=== PATIENT | female | born 1990 | race American Indian/Alaskan Native ===

== ENCOUNTER 2019-03-13 08:12 | Emergency (ER) | payer MEDICAID ==
[2019-03-13 08:22] VITALS: BP 153/81
[2019-03-13 08:59] LABS: Bacteria,Urine 1+ /HPF (Negative); Bilirubin,Urine NEG (Negative); Blood,Urine MOD (Negative); Color,Urine Yellow (Yellow); Mucus,Urine FEW /HPF; Protein,Urine <15 mg/dL mg/dL (Negative); Urobilinogen,Urine < 2.0 mg/dL (<2.0)
--- NOTE | 2019-03-13 08:59 | Emergency Department Report ---
ED HPI - General Chief complaint: Vaginal Bleeding Stated complaint: 8WKS /BLEEDING Time Seen by Provider: 03/13/19 08:39 Source: patient Mode of arrival: Ambulatory Limitations: No Limitations - History of Present Illness Initial comments: Pt comes to ER today 8 w preg with vag bleeding. She has obgyn that she saw yesterday. bleeding light. no pain. ambulatory. taking po. Complaint: vaginal bleeding -: Sudden, days(s) (1) Radiation: none Improves with: none Worsens with: none Associated symptoms: vaginal bleeding. denies: vaginal discharge, abdominal pain, dysuria Vaginal bleeding: light :: Yes Pre-edith care: followed by OB - Related Data Allergies Allergy/AdvReac Type Severity Reaction Status Date / Time No Known Allergies Allergy Verified 03/13/19 08:14 ED Review of Systems ROS: Stated complaint: 8WKS /BLEEDING Other details as noted in HPI Comment: All other systems reviewed and negative Gastrointestinal: denies: abdominal pain, nausea Genitourinary: as per HPI, abnormal menses Musculoskeletal: denies: back pain Skin: denies: rash Neurological: denies: headache Psychiatric: denies: anxiety Hematological/Lymphatic: denies: easy bleeding ED Past Medical Hx - Past Medical History Hx Hypertension: No Hx Congestive Heart Failure: No Hx Diabetes: No Hx Deep Vein Thrombosis: No Hx Renal Disease: No Hx Sickle Cell Disease: No Hx Seizures: No Hx Asthma: No Hx COPD: No Hx HIV: No Additional medical history: thyroid - Surgical History Past Surgical History?: No - Family History Family history: no significant - Social History Smoking Status: Never Smoker Substance Use Type: None ED Physical Exam - General Limitations: No Limitations General appearance: alert - Other Other exam information: - Head Head exam: Present: atraumatic, normocephalic - Eye Eye exam: Present: normal appearance, EOMI. Absent: nystagmus - ENT ENT exam: Present: normal exam, normal orophraynx, mucous membranes moist, normal external ear exam - Neck Neck exam: Present: normal inspection, full ROM. Absent: tenderness, meningismus - Respiratory Respiratory exam: Present: normal lung sounds bilaterally. Absent: respiratory distress, wheezes, rales, rhonchi, stridor, chest wall tenderness, accessory muscle use, decreased breath sounds, prolonged expiratory - Cardiovascular Cardiovascular Exam: Present: regular rate, normal rhythm, normal heart sounds. Absent: bradycardia, tachycardia, irregular rhythm, systolic murmur, diastolic murmur, rubs, gallop - GI/Abdominal GI/Abdominal exam: Present: soft. Absent: distended, tenderness, guarding, rebound, rigid, pulsatile mass - Rectal Rectal exam: Present: deferred - Extremities Exam Extremities exam: Present: normal inspection, full ROM, other (2+ pulses noted in the bilateral upper extremities. 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 Absent: calf tenderness - Back Exam Back exam: Present: normal inspection, full ROM. Absent: tenderness, CVA tenderness (R), CVA tenderness (L), paraspinal tenderness, vertebral tenderness - Neurological Exam Neurological exam: Present: alert, oriented X3, normal gait, other (Extraocular movements intact. Tongue midline. No facial droop. Facial sensation intact to light touch in the V1, V2, V3 distribution bilaterally. 5 and 5 strength in 4 extremities.. Sensation is intact to light touch in 4 extremities.). Absent: motor sensory deficit - Psychiatric Psychiatric exam: normal affect and mood - Skin Skin exam: Present: warm, dry, intact, normal color. Absent: rash ED Course Vital Signs 03/13/19 08:19 Temperature 97.9 F Pulse Rate 104 H Respiratory 16 Rate Blood Pressure 153/81 O2 Sat by Pulse 100 Oximetry ED Medical Decision Making - Lab Data Result diagrams: 03/13/19 08:47 03/13/19 08:47 - Radiology Data Radiology results: report reviewed, image reviewed - Medical Decision Making Labs 03/13/19 03/13/19 03/13/19 08:22 08:47 08:47 WBC 6.2 RBC 3.94 Hgb 10.1 Hct 31.7 MCV 80 MCH 26 L MCHC 32 RDW 13.7 Plt Count 294 Lymph % (Auto) 41.6 H [place] % (Auto) 8.6 H Eos % (Auto) 1.8 Baso % (Auto) 0.4 Lymph # 2.6 [place] # 0.5 Eos # 0.1 Baso # 0.0 Seg Neutrophils % 47.6 Seg Neutrophils # 3.0 Sodium 136 L Potassium 4.5 Chloride 105.4 Carbon Dioxide 20 L Anion Gap 15 BUN 9 Creatinine 0.3 L Estimated GFR > 60 BUN/Creatinine Ratio 30 Glucose 97 Calcium 9.3 HCG, Quant Urine Color Yellow Urine Turbidity Slightly-cloudy Urine pH 5.0 Ur Specific [place] 1.014 Urine Protein <15 mg/dl Urine Glucose (UA) Neg Urine Ketones Neg Urine Blood Mod Urine Nitrite Neg Urine Bilirubin Neg Urine Urobilinogen < 2.0 Ur Leukocyte Esterase Mod Urine WBC (Auto) 26.0 H Urine RBC (Auto) 10.0 U Epithel Cells (Auto) 1.0 Urine Bacteria (Auto) 1+ Urine Mucus Few Blood Type 03/13/19 03/13/19 08:53 Unknown WBC RBC Hgb Hct MCV MCH MCHC RDW Plt Count Lymph % (Auto) [place] % (Auto) Eos % (Auto) Baso % (Auto) Lymph # [place] # Eos # Baso # Seg Neutrophils % Seg Neutrophils # Sodium Potassium Chloride Carbon Dioxide Anion Gap BUN Creatinine Estimated GFR BUN/Creatinine Ratio Glucose Calcium HCG, Quant 28357 H Urine Color Urine Turbidity Urine pH Ur Specific [place] Urine Protein Urine Glucose (UA) Urine Ketones Urine Blood Urine Nitrite Urine Bilirubin Urine Urobilinogen Ur Leukocyte Esterase Urine WBC (Auto) Urine RBC (Auto) U Epithel Cells (Auto) Urine Bacteria (Auto) Urine Mucus Blood Type O POSITIVE Vital Signs 03/13/19 08:19 Temperature 97.9 F Pulse Rate 104 H Respiratory 16 Rate Blood Pressure 153/81 O2 Sat by Pulse 100 Oximetry labs noted rh pos us noted hcg noted discussed findings with pt dc home with pelvic rest and obgyn follow up in the AM - Differential Diagnosis ro ectopic; ro ab Critical care attestation.: If time is entered above; I have spent that time in minutes in the direct care of this critically ill patient, excluding procedure time. ED Disposition Clinical Impression: , Threatened Disposition: DC-01 TO HOME OR SELFCARE Is pt being admited?: No Does the pt Need Aspirin: No Condition: Stable Instructions: Threatened Miscarriage (ED) Additional Instructions: HCG 59559 DUE 11/04/19 6W2D NO SUBCHOR. HEMORRHAGE RH POS UTI- GIVEN ROCEPHIN PELVIC REST TYLENOL FOR PAIN FOLLOW UP IN AM WE DISCUSSED YOU NEED HCG [facility]: [facility] LUIS [Primary Care Provider] - 3-5 Days PRACHI BUCKNER MD [Staff Physician] - 3-5 Days Time of Disposition: 13:38
[2019-03-13 09:26] LABS: Basophils % (Auto) 0.4 % (0.0-1.8); Eosinophils # (Auto) 0.1 K/mm3 (0.0-0.4); Eosinophils % (Auto) 1.8 % (0.0-4.3); Hematocrit 31.7 % (30.3-42.9); Hemoglobin 10.1 gm/dl (10.1-14.3); Lymphocytes # (Auto) 2.6 K/mm3 (1.2-5.4); Lymphocytes % (Auto) 41.6 % (13.4-35.0); Mean Corpuscular HGB Conc 32 % (30-34); Mean Corpuscular Volume 80 fl (79-97); Monocytes # (Auto) 0.5 K/mm3 (0.0-0.8); Monocytes % (Auto) 8.6 % (0.0-7.3); Platelet Count 294 K/mm3 (140-440); Red Blood Count 3.94 M/mm3 (3.65-5.03); Red Cell Distribution Width 13.7 % (13.2-15.2)
[2019-03-13 10:05] LABS: BUN/Creatinine Ratio 30; Blood Urea Nitrogen 9 mg/dL (7-17); Calcium 9.3 mg/dL (8.4-10.2); Hemolysis Index 0
--- NOTE | 2019-03-13 13:25 | Ultrasound Report ---
PROCEDURE: PELVIC OB ULTRASOUND, TRANSABDOMINAL and TRANSVAGINAL, less than 14 weeks TECHNIQUE: Ultrasound examination of the pelvis using transabdominal and transvaginal technique HISTORY: VAG BLEED IN PREG , pelvic pain and cramping. No heartbeat found in doctor's office COMPARISONS: None FINDINGS: PELVIC ULTRASOUND, TRANSABDOMINAL and TRANSVAGINAL: A gestational sac is present in the endometrial cavity containing a pole. Suggestion of atypica lly large yolk sac visualized. No cardiac activity visualized. No evidence of subchorionic hemorrhage . pole crown-rump length: 5.8 mm Average estimated gestational age by ultrasound 6 weeks 2 days Estimated delivery date: 11/04/2019 Small uterine nonspecific hypoechoic nodule measuring 12 mm may be a fibroid. No evidence of solid ovarian mass. Simple appearing cysts in each ovary, 15 mm in the right and 9 mm in the left. 1 may represent a corpus luteum. The adnexa are normal. There is no cul-de-sac free fluid. Impression: Gestational sac containing pole and atypically large yolk sac. No cardiac activity detected. Co nsider follow-up in 2 weeks to determine viability, in the appropriate clinical setting 12 mm uterine nodules may be a fibroid Cystic foci of the ovaries may be follicles and/or corpus luteum This document is electronically signed by Néstor Mejía MD., Mar 13 2019 01:22:54 PM ET
[2019-03-13] MEDS ORDERED: ROCEPHIN IM ONE (13:32)
[2019-03-13] MEDS ORDERED: XYLOCAINE 1% MPF 5 mL INFILTRATI ONE (13:32)
== END 2019-03-13 14:14 | disposition home or self-care (01) ==
LOC: ED 08:12
DX: O20.0 Threatened abortion (principal); Z3A.08 8 weeks gestation of pregnancy
CPT/HCPCS: 36415; 76801; 76817; 80048; 81001; 84702; 85025; 86900; 86901; 96372; 99284; J0696